=== PATIENT | female | born 1945 | race Caucasian/White ===

== ENCOUNTER 2017-02-24 08:16 | Emergency (ER) | payer MEDICARE ==
[~2017-02-24] VITALS: Ht 139.7 cm; Wt 86.5 kg
[~2017-02-24 08:16] MED LIST: ALEN70TA5 PO; ALPR0.25 PO; ASPI-650 PO; ATOR-2 PO; ATOR20TA9 PO; ERGO500040 PO; FAMO20TA7 PO; HUM100VI6 SC; HYDR-3307 PO; LISI-170 PO; ONDA4TAB12 PO; ZOLP10TA PO
[2017-02-24 09:38] VITALS: BP 181/91
[2017-02-24] MEDS ORDERED: ONDANSETRON ODT 4 MG ONE (09:59)
[2017-02-24] MEDS ORDERED: HYDROmorphone 1 MG/ML, 1ML ONE (09:59)
[2017-02-24] MEDS ORDERED: HYDROmorphone 1 MG/ML, 1ML IM ONE (10:00)
[2017-02-24] MEDS ORDERED: ONDANSETRON ODT 4 MG PO ONE (10:00)
== END 2017-02-24 12:15 | disposition home or self-care (01) ==
LOC: ED 09:56
DX: S39.012A Strain of muscle, fascia and tendon of lower back, initial encounter (principal); M19.90 Unspecified osteoarthritis, unspecified site; W19.XXXA Unspecified fall, initial encounter; Y93.89 Activity, other specified; Y92.89 Other specified places as the place of occurrence of the external cause; Y99.9 Unspecified external cause status
CPT/HCPCS: 72110; 93005; 96372; 99284; J1170; Q0162